=== PATIENT | female | born 1970 | race Caucasian/White ===

== ENCOUNTER → 2016-07-27 | Outpatient (CLI) | payer OTHER | LOC: WI 11:32 | PROVIDERS: ATTEND Family Medicine | DX: Z12.31 Encounter for screening mammogram for malignant neoplasm of breast (principal) | CPT/HCPCS: 77067; G0202 ==

== ENCOUNTER → 2017-09-24 | Outpatient (CLI) | payer OTHER ==
--- NOTE | 2017-09-24 15:51 | WOMENS IMAGING REPORT ---
EXAM DESCRIPTION: BILAT SCREENING MAMMO W/CAD COMPLETED DATE/TIME: 09/24/2017 9:45 am REASON FOR STUDY: ROUTINE SCREENING;Z12.31 Z12.31 ENCNTR SCREEN MAMMOGRAM FOR MALIGNANT NEOPLASM OF [place] COMPARISON: Multiple since 2012 TECHNIQUE: Standard craniocaudal and mediolateral oblique views of each breast recorded using Breadtri[employer] l acquisition. LIMITATIONS: None. FINDINGS: No masses, calcifications or architectural distortion. No areas of suspicion. Read with the assistance of CAD. .[facility] - R2 [employer] Version 1.3 .[facility] - R2 Cenova Version 1.3 .[facility] - R2 Cenova Version 2.4 .[facility] [place] R2 Cenova Version 2.4 .[facility] - R2 [employer] Version 9.2 IMPRESSION: NORMAL MAMMOGRAM. BIRADS 1. BREAST DENSITY: b. There are scattered areas of fibroglandular density. BIRAD: 1 NEGATIVE RECOMMENDATION: ROUTINE SCREENING Please continue yearly bilateral screening mammography/tomosynthesis in August 2018 COMMENT: The patient has been notified of the results by letter per SA requirements. Additional no tification policies are in place for contacting patient with suspicious or incomplete findings. Quality ID #[id number]: The [employer] recommends an annual screening mammogram for women aged 40 years or over. This facility utilizes a reminder system to ensure that all patients receive reminder letters, and/or direct phone calls for appointments. This includes reminders for routine scr eening mammograms, diagnostic mammograms, or other Breast Imaging Interventions when appropriate. Th is patient will be placed in the appropriate reminder system. The [employer] (ACR) has developed recommendations for screening MRI of the breast s in certain patient populations, to be used in conjunction with mammography. Breast MRI surveillanc e may be appropriate for women with more than 20% lifetime risk of developing breast cancer as deter mined by genetic testing, significant family history of the disease, or history of mantle radiation f or Hodgkins Disease. ACR Practice Guidelines 2008. TECHNICAL DOCUMENTATION: FINDING NUMBER: (1) ASSESSMENT: (1) JOB ID: [id number] [employer]- All Rights Reserved Reading location - IP/workstation name: [email or web address]
== END ==
LOC: WI 09:31
PROVIDERS: ATTEND Family Medicine
DX: Z12.31 Encounter for screening mammogram for malignant neoplasm of breast (principal)
CPT/HCPCS: 77067

== ENCOUNTER → 2018-08-03 | Day surgery (SDC) | payer OTHER ==
--- NOTE | 2018-08-03 15:54 | RADIOLOGY REPORT (SQ) ---
EXAM DESCRIPTION: ARTHRO SHOULDER INJECTION; FLUORO/NEEDLE PLACEMENT COMPLETED DATE/TIME: 08/03/2018 3:35 pm REASON FOR STUDY: BURSITIS OF RIGHT SHOULDER M75.51 BURSITIS OF RIGHT SHOULDER COMPARISON: None. FLUOROSCOPY TIME: 0.3 seconds 1 images saved to PACS. LIMITATIONS: None. PROCEDURE: Procedure, risks, benefits and alternatives explained to patient who then gave written co nsent. The right shoulder was marked and a time out was called for correct procedure verification. P osterior entry site marked using fluoroscopic guidance. Shoulder prepped and draped using sterile te chnique. Local anesthesia achieved using 1% lidocaine injection. Hypodermic needle introduced into the joint space under direct fluoroscopic visualization. Non-ionic contrast instilled to confirm intr a-articular position. Dilute gadolinium solution then injected. Needle removed and entry site covere d with sterile bandage. No immediate complications noted. TECHNIQUE: Digital images acquired during fluoroscopy and stored on PACS. Patient immediately take n to the MR suite for additional imaging. INJECTION LOCATION: Posterior right shoulder. CONTRAST TYPE AND AMOUNT: 6 cc 1% lidocaine, 1 cc Omnipaque, 10 cc dilute gadolinium IMPRESSION: SUCCESSFUL NEEDLE PLACEMENT AND INJECTION FOR RIGHT SHOULDER MR ARTHROGRAM USING POSTERI OR APPROACH. COMMENT: Quality ID [id number]: Final reports for procedures using fluoroscopy that document radiation exp osure indices, or exposure time and number of fluorographic images (if radiation exposure indices are not available) TECHNICAL DOCUMENTATION: JOB ID: [id number] [employer]- All Rights Reserved Reading location - IP/workstation name: [email or web address]
--- NOTE | 2018-08-03 16:39 | RADIOLOGY REPORT (SQ) ---
EXAM DESCRIPTION: MRI RT UPPER JOINT WITH COMPLETED DATE/TIME: 08/03/2018 4:11 pm REASON FOR STUDY: BURSITIS OF RIGHT SHOULDER M75.51 BURSITIS OF RIGHT SHOULDER COMPARISON: None. TECHNIQUE: Right shoulder images acquired and stored on PACS. Oblique coronal, oblique sagittal, and axial imaging to include fat sensitive sequences as T1, water sensitive sequences as FST2/STIR, and contrast sensitive sequences as FST1. LIMITATIONS: None. FINDINGS: JOINT DISTENTION: Adequate. No loose bodies. BONE MARROW AND CORTEX: Normal. AC JOINT: Mild degenerative overgrowth with marrow edema. No suggestion of significant subacromial c ompromise. GLENOHUMERAL JOINT: No subluxation or dislocation. Intact articular surface cartilage. ROTATOR CUFF: Irregular tear throughout the supraspinatus. Contrast is seen variably throughout the substance of the cuff with extravasation mildly into the subacromial subdeltoid bursa. This is consi stent with a component of full-thickness perforation. The remainder of the teres high-grade partial. No large gap in the cuff, retraction or definite atrophy. LABRUM AND BICEPS LABRAL COMPLEX: No overt superior labral tear or biceps disease. INFERIOR LABRAL COMPLEX: Generally intact. ADJACENT SOFT TISSUES: No regional mass or axillary adenopathy. OTHER: No other significant finding. IMPRESSION: 1. Relatively extensive diffuse high-grade partial tear throughout the cuff with areas of full-thickn ess perforation but no measurable gap or retraction. TECHNICAL DOCUMENTATION: JOB ID: [id number] [employer]- All Rights Reserved Reading location - IP/workstation name: [email or web address]
== END ==
LOC: RAD 14:35
PROVIDERS: ATTEND Physician Assistant
DX: M75.51 Bursitis of right shoulder (principal)
CPT/HCPCS: 73222; 77002; 23350; A9576